=== PATIENT | female | born 1995 | race Two or more races ===

== ENCOUNTER 2020-05-30 21:19 | Emergency (ER) | payer MEDICAID, OTHER ==
[~2020-05-30] VITALS: Ht 154.9 cm; Wt 71.1 kg
[2020-05-30 21:21] VITALS: BP 131/76
--- NOTE | 2020-05-30 22:12 | NUR ---
PT AMBULATES FROM LOBBY TO ROOM WITH STEADY GAIT.
[2020-05-30] MEDS ORDERED: DIPHENHYDRAMINE 25 MG CAPSULE PO ONE (22:30)
[2020-05-30] MEDS ORDERED: DEXAMETHASONE 4 MG TABLET PO ONE (22:30)
[2020-05-30] MEDS ORDERED: DIPHENHYDRAMINE 25 MG CAPSULE ONE (22:33)
[2020-05-30] MEDS ORDERED: DEXAMETHASONE 4 MG TABLET ONE (22:33)
--- NOTE | 2020-05-30 22:57 | NUR ---
PT D/C WITH D/C SUMMARY AND SCRIPTS. ALL QUESTIONS ANSWERED. PT AMBULATES TO REGISTRATION DESK WITH STEADY GAIT FOR D/C HOME. PT DENIES ANY OTHER NEEDS EPRTAINING TO THIS VISIT.
== END 2020-05-30 23:20 | disposition home or self-care (01) ==
LOC: ED 23:00
DX: L29.9 Pruritus, unspecified (principal); T37.3X5A Adverse effect of other antiprotozoal drugs, initial encounter; R06.02 Shortness of breath; Y92.89 Other specified places as the place of occurrence of the external cause; G43.909 Migraine, unspecified, not intractable, without status migrainosus
CPT/HCPCS: 99283; Q0163